=== PATIENT | female | born 1980 | race Caucasian/White ===

== ENCOUNTER 2025-06-03 22:49 | Emergency (ER) | payer MEDICAID ==
[~2025-06-03] VITALS: Ht 162.6 cm; Wt 77.1 kg
[2025-06-03 22:52] VITALS: TEMP 36.9
[2025-06-04 00:05] LABS: BASOPHILS % 0.1 % (0.0-2.0); EOSINOPHILS % 7.4 % (0.0-5.0); HEMATOCRIT. 35.8 % (36.0-48.0); HEMOGLOBIN. 12.0 g/dL (12.0-16.0); LYMPHOCYTES % 22.4 % (20.0-50.0); MEAN PLATELET VOLUME 8.5 fl (7.4-10.4); MONOCYTES % 4.4 % (2.0-8.0); NEUTROPHILS % 65.7 % (40.0-76.0); PLATELET 275 x1000/uL (130-400); RED BLOOD CELL COUNT 3.97 mill/uL (4.2-5.4); RED CELL DISTRIBUTION WIDTH 14.1 % (11.6-14.6)
[2025-06-04 00:10] LABS: CREATININE 0.8 mg/dL (0.6-1.0); UREA NITROGEN BLOOD 11 mg/dL (9-23)
[2025-06-04] MEDS: LEVETIRACETAM 1000MG PREMIX 100 ML IV ONE (00:39)
[2025-06-04] MEDS: ONDANSETRON HCL 4MG/2ML INJ IV ONE (00:41)
[2025-06-04] MEDS: MORPHINE SULFATE 4 MG/ML INJ (FOR IV/IM USE) IV ONE (00:41)
[2025-06-04 01:00] VITALS: O2SAT 100
[2025-06-04] MEDS: PROPOFOL 200MG/20ML VIAL IV ONE (01:00)
[2025-06-04 03:30] VITALS: BP 125/75; PULSE 72; RESP 22; O2SAT 99
== END 2025-06-04 03:32 | disposition home or self-care (01) ==
LOC: ER 22:49
DX: S43.014A Anterior dislocation of right humerus, initial encounter (principal); R56.9 Unspecified convulsions; I10 Essential (primary) hypertension; M06.9 Rheumatoid arthritis, unspecified
CPT/HCPCS: 80048; 85025; 36415; 73030 ×2; 23650; 99152; 99285; 96365; 96375; Z7610; J1953; J2405; J2704; J2270